=== PATIENT | male | born 1965 | race Caucasian/White ===

== ENCOUNTER 2023-01-24 17:36 | Outpatient (CLI) | payer MEDICAID, OTHER ==
[2023-01-24 18:17] LABS: BASOPHILS % (AUTO) 1.4 %; EOSINOPHILS % (AUTO) 2.2 %; HCT - HEMATOCRIT 29.9 % (42.0-52.0); HGB - HEMOGLOBIN 9.4 g/dL (14.0-18.0); LYMPHOCYTES % (AUTO) 44.1 %; MEAN CORPUSCULAR HEMOGLOBIN 28.5 pg (27.0-31.0); MEAN CORPUSCULAR HGB CONC 31.4 g/dL (32.0-36.0); MEAN CORPUSCULAR VOLUME 90.6 fL (80.0-94.0); MEAN PLATELET VOLUME 9.3 fL (7.4-11.4); MONOCYTES % (AUTO) 17.8 %; NEUTROPHILS % (AUTO) 34.2 %; PLT - PLATELET COUNT 238 10^3/uL (130-450); RED CELL DISTRIBUTION WIDTH 15.9 % (12.0-15.0); WHITE BLOOD COUNT 6.3 x10^3/uL (4.8-10.8)
[2023-01-24 18:19] LABS: ALBUMIN 2.7 g/dL (3.2-5.5)
[2023-01-24 18:23] LABS: ABNORMAL LYMPHS % (MANUAL) 0 %
[2023-01-24 18:28] LABS: ALBUMIN/GLOBULIN RATIO 0.4 (1.0-2.2); BILIRUBIN,TOTAL 0.6 mg/dL (0.2-1.0); CALCIUM 8.9 mg/dL (8.5-10.3); CREATININE 1.1 mg/dL (0.6-1.3); POTASSIUM 3.7 mmol/L (3.5-4.5); TOTAL PROTEIN 9.8 g/dL (6.4-8.9)
[2023-01-24 18:53] LABS: BAND NEUTROPHILS % (MANUAL) 8 %; DIFFERENTIAL COMMENT MANUAL DIFFERENTIAL; EOSINOPHILS # (MANUAL) 0.3 10^3/uL (0-0.7); LYMPHOCYTES % (MANUAL) 47 %; MONOCYTES # (MANUAL) 1.1 10^3/uL (0.0-1.0); PLATELET ESTIMATE, MANUAL NORMAL (130-450,000) (NORMAL); PLATELET MORPHOLOGY NORMAL APPEARANCE (NORMAL); RBC MORPHOLOGY (MULTIPLE) NORMAL APPEARANCE (NORMAL)
--- NOTE | 2023-01-24 19:41 | XRAY Report ---
PROCEDURE: Chest 2 View X-Ray INDICATIONS: DYSPNEA ON EXERTION TECHNIQUE: 2 views of the chest were acquired. COMPARISON: None. FINDINGS: Surgical changes and devices: None. Lungs and pleura: No pleural effusions or pneumothorax. Lungs are clear. Mediastinum: Mediastinal contours appear normal. Heart size is normal. Bones and chest wall: No suspicious bony lesions. Overlying soft tissues appear unremarkable. IMPRESSION: Unremarkable two-view chest x-ray Reviewed by: Jin Griffiths MD on 01/24/2023 6:40 PM AKCYNTHIA Approved by: Jin Griffiths MD on 01/24/2023 6:40 PM AKDT Station ID: [id number]
[2023-01-24 20:38] LABS: THYROID STIMULATING HORMONE 2.34 uIU/mL (0.34-5.60)
[2023-01-24 21:35] LABS: ESTIMATED AVERAGE GLUCOSE 100 mg/dL (70-100); HEMOGLOBIN A1c% 5.1 % (4.27-6.07)
== END 2023-01-24 17:37 | disposition home or self-care (01) ==
LOC: DI 17:36
PROVIDERS: ATTEND Registered Nurse
DX: R63.4 Abnormal weight loss (principal); R53.83 Other fatigue; R06.09 Other forms of dyspnea
CPT/HCPCS: 36415; 80053; 83036; 84443; 85025

== ENCOUNTER 2023-01-26 08:52 | Observation (INO) | payer MEDICAID, OTHER ==
--- OUTSIDE RECORDS SUMMARY | 2023-01-26 09:16 | EXTERNAL MEDICAL SUMMARY RPT | Continuity of Care Document ---
Author Name Unknown Address [address] [place] [address] Phone Organization [facility] Address [address] [place] [address] Phone Care Team Providers Care Document Review Specialist Name Role Phone Unavailable Unavailable Unavailable Bonita Dubois, Flavio Unavailable Unavailabl Eddie Roth Pa-C Unavailable Unavailable Stephanie Mercedes Lpn Unavailable Unavailable Medications date description facility 2023-01-22 00:00 naproxen sodium All 2023-01-26 00:00 naproxen sodium All 2023-01-26 00:00 naproxen sodium All 2023-01-26 00:00 naproxen sodium All 2023-01-22 00:00 naproxen sodium All 2023-01-26 00:00 naproxen sodium All 2023-01-26 00:00 naproxen sodium All 2023-01-26 00:00 naproxen sodium All 2023-01-22 00:00 naproxen sodium All 2023-01-26 00:00 naproxen sodium All 2023-01-26 00:00 naproxen sodium All 2023-01-26 00:00 naproxen sodium All 2023-01-22 00:00 naproxen sodium All 2023-01-26 00:00 naproxen sodium All 2023-01-26 00:00 naproxen sodium All 2023-01-26 00:00 naproxen sodium All Problems date description facility 2023-01-21 00:00 Dyspnea on exertion All 2023-01-21 00:00 Dyspnea on exertion All 2023-01-21 00:00 Dyspnea on exertion All 2023-01-21 00:00 Other malaise and fatigue All 2023-01-21 00:00 Other malaise and fatigue All 2023-01-21 00:00 Other malaise and fatigue All 2023-01-21 00:00 Loss of weight All 2023-01-21 00:00 Loss of weight All 2023-01-21 00:00 Loss of weight All 2023-01-21 00:00 Other dyspnea and respiratory a bnormality All 2023-01-21 00:00 Other dyspnea and respiratory a bnormality All 2023-01-21 00:00 Other dyspnea and respiratory a bnormality All 2023-01-21 00:00 Fatigue All 2023-01-21 00:00 Fatigue All 2023-01-21 00:00 Fatigue All 2023-01-21 00:00 Other forms of dyspnea All 2023-01-21 00:00 Other forms of dyspnea All 2023-01-21 00:00 Other forms of dyspnea All 2023-01-21 00:00 Other fatigue All 2023-01-21 00:00 Other fatigue All 2023-01-21 00:00 Other fatigue All 2023-01-21 00:00 Abnormal weight loss All 2023-01-21 00:00 Abnormal weight loss All 2023-01-21 00:00 Abnormal weight loss All Procedures date description facility 2023-01-21 00:00 Visit Code Hold All 2023-01-21 00:00 Visit Code Hold All 2023-01-21 00:00 Visit Code Hold All Results/Labs test date facility value unit notes Social History date description facility 2023-01-22 00:00 Unknown if ever smoked All 2023-01-26 00:00 Unknown if ever smoked All 2023-01-26 00:00 Unknown if ever smoked All 2023-01-26 00:00 Unknown if ever smoked All Vital Signs date measurement value units 2023-01-21 00:00 BMI 23.09 kg/m2 2023-01-21 00:00 BP_diastolic 74 mmHg 2023-01-21 00:00 BP_systolic 146 mmHg 2023-01-21 00:00 heart_rate 106 /min 2023-01-21 00:00 height_metric 175.26 cm 2023-01-21 00:00 height_standard 69 in 2023-01-21 00:00 respiration_rate 18 /min 2023-01-21 00:00 temperature_metric 36.67 C 2023-01-21 00:00 temperature_standard 98 F 2023-01-21 00:00 weight_metric 70.67 kg 2023-01-21 00:00 weight_standard 155.8 lb
[2023-01-26 09:36] LABS: BASOPHILS % (AUTO) 1.3 %; EOSINOPHILS % (AUTO) 2.5 %; HCT - HEMATOCRIT 31.4 % (42.0-52.0); HGB - HEMOGLOBIN 9.8 g/dL (14.0-18.0); MEAN CORPUSCULAR HEMOGLOBIN 28.7 pg (27.0-31.0); MEAN CORPUSCULAR HGB CONC 31.2 g/dL (32.0-36.0); MEAN CORPUSCULAR VOLUME 91.8 fL (80.0-94.0); MEAN PLATELET VOLUME 9.4 fL (7.4-11.4); MONOCYTES % (AUTO) 19.4 %; NEUTROPHILS % (AUTO) 28.6 %; PLT - PLATELET COUNT 233 10^3/uL (130-450); RED BLOOD COUNT 3.42 10^6/uL (4.70-6.10); RED CELL DISTRIBUTION WIDTH 16.2 % (12.0-15.0); WHITE BLOOD COUNT 5.3 x10^3/uL (4.8-10.8)
[2023-01-26 09:38] LABS: ABNORMAL LYMPHS % (MANUAL) 0 %
[2023-01-26 09:55] LABS: ALBUMIN 2.7 g/dL (3.2-5.5)
[2023-01-26 09:57] LABS: ALBUMIN/GLOBULIN RATIO 0.4 (1.0-2.2); BILIRUBIN,TOTAL 0.7 mg/dL (0.2-1.0); CREATININE 0.8 mg/dL (0.6-1.3)
[2023-01-26 10:03] LABS: BAND NEUTROPHILS % (MANUAL) 1 %; BASOPHILS # (MANUAL) 0.4 10^3/uL (0-0.1); BASOPHILS % (MANUAL) 7 %; EOSINOPHILS # (MANUAL) 0.3 10^3/uL (0-0.7); LYMPHOCYTES # (MANUAL) 2.4 10^3/uL (1.5-3.5); LYMPHOCYTES % (MANUAL) 45 %; MONOCYTES # (MANUAL) 0.8 10^3/uL (0.0-1.0); NEUTROPHILS # (MANUAL) 1.4 10^3/uL (1.5-6.6); NUCLEATED RBC (MANUAL) 1 %
[2023-01-26 10:04] LABS: DIFFERENTIAL COMMENT MANUAL DIFFERENTIAL; PLATELET ESTIMATE, MANUAL NORMAL (130-450,000) (NORMAL); PLATELET MORPHOLOGY NORMAL APPEARANCE (NORMAL); RBC MORPHOLOGY (MULTIPLE) 1+ ANISOCYTOSIS (NORMAL)
[2023-01-26] MEDS ORDERED: SODIUM CHLORIDE 0.9% 500 ML IV STA (10:09)
--- NOTE | 2023-01-26 11:54 | CT Report ---
PROCEDURE: CT angiogram chest with contrast INDICATIONS: SOA/weight loss/anemia CONTRAST: 100ml omni 300 TECHNIQUE: After the administration of intravenous contrast, 2 mm axial images were acquired from the pulmonary apices to the posterior costophrenic angles during the arterial phase. In addition, 1 mm lung kernel and 5 mm soft tissue kernel reconstructions were performed. Coronal oblique maximum intensity project ion (MIP) reformats, 8 mm axial MIP, and 5 mm coronal and sagittal MPR reformats were then performed through the thorax. For radiation dose reduction, the following was used: automated exposure control, adjustment of mA and/or kV according to patient size. COMPARISON: None FINDINGS: Image quality: Excellent. Large vessels: No filling defects within the opacified pulmonary arteries, accounting for motion and contrast timing. No evidence of acute aortic syndrome or aortic aneurysm. Lungs and pleura: Moderate, emphysema present throughout both lungs. There is right upper lobe airway mucous plugging noted without consolidation. Mild dependent atelectasis in the lung bases noted. Ple ural spaces are clear without pleural effusion. Mediastinum: Heart size is normal. No pericardial effusion. No large vessel abnormality. No mediastin al adenopathy by size criteria. Chest wall and lower neck: Thyroid is unremarkable. No axillary or supraclavicular adenopathy by size . Bones: No aggressive osseous abnormality. Upper Abdomen: Splenomegaly, 12 cm IMPRESSION: No evidence of pulmonary embolism, aortic dissection or aneurysm. Moderate pulmonary emphysema. Right upper lobe small airway mucous plugging without the consolidation Reviewed by: Jin Griffiths MD on 01/26/2023 10:53 AM SOPHY Approved by: Jin Griffiths MD on 01/26/2023 10:53 AM AKCYNTHIA Station ID: [id number]
--- NOTE | 2023-01-26 12:06 | CT Report ---
PROCEDURE: CT abdomen and pelvis with contrast INDICATIONS: weight loss/anemia TECHNIQUE: Helical axial CT of the abdomen and pelvis was obtained after intravenous contrast adminis tration and reformatted in multiple planes. For radiation dose reduction, the following was used: au tomated exposure control, adjustment of mA and/or kV according to patient size. COMPARISON: None FINDINGS: Lower thorax: The lung bases are clear. Heart size normal. No hiatal hernia. Liver: Normal in size and attenuation. No contour deformity present.Low-density 1 cm lesion in the r ight hepatic lobe with dot of central enhancement. Biliary system: No calcified cholelithiasis or pericholecystic inflammation. No evidence of bile du ct dilatation. Pancreas: Unremarkable without mass or inflammation evident. Spleen: Splenomegaly, 14.8 cm. Adrenals: Low-density 1.3 cm nodule in the right adrenal gland. Left adrenal gland unremarkable. Reproductive system: Unremarkable as visualized. Urinary system: Normal renal size and attenuation. No renal calculi, hydronephrosis, or solid mass p resent. Urinary bladder unremarkable. 9 mm hypodense lesion in the left renal cortex, possible cyst Gastrointestinal system: The bowel appears unremarkable with no evidence of bowel obstruction or inf lammation. The stomach appears unremarkable. Appendix: No findings to suggest acute appendicitis. Peritoneal spaces: No mesenteric or retroperitoneal adenopathy. No free air. No free fluid. Vasculature: Atherosclerotic vascular calcification of the aorta noted without aneurysm Abdominal wall: Abdominal wall is intact without evidence of ventral or inguinal hernias. Musculoskeletal: Normal bone mineralization. No acute fractures. Abdominal wall intact without javan dence of ventral or inguinal hernias. Old healed right-sided rib fracture IMPRESSION: Splenomegaly without retroperitoneal adenopathy. Low-density 1.3 cm right adrenal nodule, possible adenoma could be confirmed with MRI. Low-density 1 cm lesion in the liver with central enhancement could also be further evaluated with MR I Reviewed by: Jin Griffiths MD on 01/26/2023 11:04 AM SOPHY Approved by: Jin Griffiths MD on 01/26/2023 11:04 AM SOPHY Station ID: [id number]
--- NOTE | 2023-01-26 12:30 | ED Physician Documentation ---
History of Present Illness - Stated complaint Stated Complaint: SOA/ABNORMAL LABS - Chief complaint Chief Complaint: Resp - History obtained from History obtained from: Patient - Additonal information Additional information: Patient is a 57-year-old male with no known prior medical history presenting for evaluation of abnormal labs. For the past several months he has been feeling increasingly short of air particularly with exertion and also feeling weak. He has had an unintentional weight loss of 30 pounds over the past 1 year. His brother is visiting him and encouraged him to go to the walk-in clinic a few days ago for evaluation. Labs were obtained which demonstrated a hemoglobin of 9.4 and a sodium of 125. Patient does report often feeling thirsty. He does not take any medications regularly. He denies chest pain, fever, cough, vomiting, black or bloody stools. He was called by the walk-in clinic today and directed to the emergency department for further evaluation. Review of Systems Constitutional: denies: Fever Cardiac: denies: Chest pain / pressure Respiratory: reports: Dyspnea GI: denies: Abdominal Pain Neurologic: reports: Generalized weakness Endocrine: reports: Weight loss PD PAST MEDICAL HISTORY - Past Medical History Past Medical History: No Cardiovascular: None Respiratory: None Neuro: None Endocrine/Autoimmune: None GI: None : None HEENT: None Psych: None Musculoskeletal: None Derm: None - Past Surgical History Past Surgical History: No - Present Medications Home Medications: Ambulatory Orders Medication Instructions Recorded Confirmed No Known Home Medications 01/26/23 01/26/23 - Allergies Allergies/Adverse Reactions: Allergies Allergy/AdvReac Type Severity Reaction Status Date / Time No Known Drug Allergies Allergy Verified 01/26/23 09:01 - Social History Does the pt smoke?: Yes Smoking Status: Current every day smoker Does the pt drink ETOH?: Yes ETOH Use: Beer Does the pt have substance abuse?: No - Immunizations Immunizations are current?: No - POLST Patient has POLST: No PD ED PE NORMAL - General General: Alert and oriented X 3, No acute distress, Well developed/nourished - HEENT HEENT: Atraumatic - Neck Neck: Supple, no meningeal sign - Cardiac Cardiac: RRR, No murmur - Respiratory Respiratory: No respiratory distress, Clear bilaterally - Abdomen Abdomen: Soft, Non tender, Non distended - Derm Derm: Warm and dry - Extremities Extremities: No calf tenderness / cord - Neuro Neuro: Alert and oriented X 3, No motor deficit, No sensory deficit, Normal speech Results - Vitals Vitals: Vital Signs - 24 hr 01/26/23 01/26/23 01/26/23 08:58 10:01 12:00 Temperature 36.4 C L Heart Rate 115 H 100 89 Respiratory 26 H 15 18 Rate Blood Pressure 99/65 132/80 H 120/79 O2 Saturation 100 100 100 Oxygen O2 Source Room air - EKG (time done) 0949 EKG releavant findings:: EKG personally interpreted by author of this note. Relevant findings are: Rate 92, normal sinus rhythm, no STEMI, no ST depressions Rate: Rate (enter#) (92) Rhythm: NSR Ischemia: No: ST elevation c/w ischemia Compare to prior EKG: Old EKG unavailable - Labs Labs: Laboratory Tests 01/26/23 01/26/23 01/26/23 09:30 09:30 13:18 WBC 5.3 RBC 3.42 L Hgb 9.8 L Hct 31.4 L MCV 91.8 MCH 28.7 MCHC 31.2 L RDW 16.2 H Plt Count 233 MPV 9.4 Neut # (Auto) Not Reportable Lymph # (Auto) Not Reportable [place] # (Auto) Not Reportable Eos # (Auto) Not Reportable Baso # (Auto) Not Reportable Absolute Nucleated RBC Not Reportable Total Counted 100 Band Neuts % (Manual) 1 Abnorm Lymph % (Manual) 0 Nucleated RBC % Not Reportable Neutrophils # (Manual) 1.4 L Lymphocytes # (Manual) 2.4 Monocytes # (Manual) 0.8 Eosinophils # (Manual) 0.3 Basophils # (Manual) 0.4 H Nucleated RBCs 1 Differential Comment MANUAL DIFFERENTIAL Platelet Estimate NORMAL (130-450,000) Platelet Morphology NORMAL APPEARANCE RBC Morph Micro Appear 1+ ANISOCYTOSIS Sodium 126 L Potassium 4.0 Chloride 101 Carbon Dioxide 22 Anion Gap 3.0 L BUN 19 Creatinine 0.8 Estimated GFR (MDRD) 99 Glucose 34 L* POC Whole Bld Glucose 99 Calcium 9.0 Total Bilirubin 0.7 AST 70 H ALT 46 Alkaline Phosphatase 62 Total Protein 10.0 H Albumin 2.7 L Globulin 7.3 H Albumin/Globulin Ratio 0.4 L PD Medical Decision Making - ED course Complexity details: reviewed results, re-evaluated patient, d/w patient, d/w family ED course: Patient is a 57-year-old male with no significant prior medical history but has not seen a doctor in decades presenting for evaluation of abnormal labs. Recent symptoms include weakness, dyspnea, unintentional weight loss. Patient is afebrile, does not appear septic. CBC, chemistries were obtained and reviewed. Patient does have anemia with a hemoglobin of 9.8. This is unchanged from a few days ago. Denies hematochezia or melena. Sodium of 126 which is similar to a few days ago of 125.Patient also noted to be hypoglycemic with glucose of 34. He does not take insulin. I did evaluate the patient and he appears to be asymptomatic and is conversant. Patient was given juice as well as crackers. Chest x-ray was reviewed from 2 days ago and I see no effusion or mass. Given his symptoms I obtained a CT chest, abdomen pelvis with concerns for malignancy. There is a nodule on the adrenal gland as well as the liver. I did review these results with the patient and his brother and they are aware that he would need MRIs to evaluate these areas. It given lab abnormalities and lack of PCP I do think patient would benefit from observation with continued treatment of his hyponatremia and evaluation of abnormal labs. Discussed with admitting hospitalist who agrees with plan for observation. 1339 - Discussed with admitting hospitalist, Dr. Mera who will admit the patient for further observation. She may consider doing an MRI to evaluate the adrenal mass. Departure - Departure Disposition: ED Place in Observation Clinical Impression: Hyponatremia, Hypoglycemia, Anemia, Adrenal nodule, Liver nodule Condition: Good Discharge Date/Time: 01/26/23 15:42
[2023-01-26] MEDS ORDERED: SODIUM CHLORIDE FLUSH 0.9% 10 ML SYRINGE IVP PRN (15:01)
[2023-01-26] MEDS ORDERED: ONDANSETRON 4 MG/2 ML VIAL IVP PRN (15:01)
[2023-01-26] MEDS ORDERED: ACETAMINOPHEN 325 MG TABLET PO PRN (15:01)
--- NOTE | 2023-01-26 15:09 | HISTORY & PHYSICAL EXAMINATION ---
Chief Complaint - Chief Complaint Chief Complaint: Told to come to ER by provider, because of abnormal lab tests History of Present Illness - Admitted From Admitted From:: ED - History Obtained From History obtained from: ED provider, patient, at bedside - History of Present Illness HPI Comment/Other: This is a 57-year-old male with a negative past medical history. He has had swelling of his joints of his fingers with deformities for many years, has never had it evaluated (but it appears to be rheumatoid arthritis). He works as a furnace worker, has amended the way he holds his equipment because of these finger deformities. He uses occasional Aleve. The patient also smoked 1-1/2 to 2 packs a day, has decreased now down to two thirds of a pack, is trying to quit. The patient has felt weak and dizzy for the past 4-5 months, feels like he has a "buzz" when he gets up every morning. 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 He reports fatigue and a weight loss of 30 pounds that was unintentional, over the past 1 year. His brother visited him from out of state and encouraged the patient to go to a walk-in clinic for evaluation where labs were drawn 2 days ago. Sodium was 125, hemoglobin 9.4, CXR showed COPD. Due to abnormal labs, today he was told to come to the ER. He denied any other complaints such as melena or hematochezia when evaluated. He does admit to drinking 8 bottles of bottled water daily. Patient does describe shortness of breath with activity over the past 4 months. He denies PND orthopnea. He denies any syncope, chest pain, palpitations, leg edema. Labs were repeated in our ER, and he has a sodium of 126, hemoglobin 9.8 and glucose 34. The glucose lab was repeated by fingerstick and came back at 99 but this was about 2 hours later. The patient underwent CT of chest and abdomen/pelvis, it was negative for PE. Important findings were that there was a mass in his liver and a nodule on the adrenal gland. ED provider spoke to me about this patient. He will be placed in Observation because of the hypoglycemia, to monitor and see if this is recurrent. We will also treat him for hyponatremia. I asked the patient about his CODE BLUE wishes and without hesitation he stated he wants to be a DNR/DNI. History - Past Medical History Cardiovascular: reports: None Respiratory: reports: Shortness of breath Neuro: reports: None Endocrine/Autoimmune: reports: Other (Hasn odules on all the joints of all his fingers, and deformities, which are consistent with RA) GI: reports: None : reports: None HEENT: reports: None Psych: reports: None Musculoskeletal: reports: None Derm: reports: None MRSA Hx?: No - Family & Social History Living arrangement: At home Living Situation: With spouse/s.o. Social History Notes: He was a smoker of 1/2 to 2 packs a day, has decreased down to 2/3 pack a day. He drinks no alcohol. He rarely uses marijuana. He denies any other drug use. 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 - Substance History Use: Uses substance without health or social issues: Tobacco - POLST Patient has POLST: No Meds/Allgy - Home Medications Home Medications: Ambulatory Orders Medication Instructions Recorded Confirmed No Known Home Medications 01/26/23 01/26/23 - Allergies Allergies/Adverse Reactions: Allergies Allergy/AdvReac Type Severity Reaction Status Date / Time No Known Drug Allergies Allergy Verified 01/26/23 09:01 Review of Systems - Constitutional Constitutional: reports: Fatigue, Other (Dizzy/foggy when he awakens) - Respiratory Respiratory: reports: SOB with exertion - Musculoskeletal Musculoskeletal: reports: Joint pain (pain and swelling and deformities, he takes aleve, has never had these diagnosed.) - All Other Systems All Other Systems: reports: Reviewed and negative Exam - Vital Signs Reviewed Vital Signs: Yes Vital Signs: Vital Signs x48h Temp Pulse Resp BP Pulse Ox 01/26/23 12:00 89 18 120/79 100 01/26/23 10:01 100 15 132/80 H 100 01/26/23 08:58 36.4 C L 115 H 26 H 99/65 100 - Physical Exam General Appearance: positive: No acute distress, Alert Eyes Bilateral: positive: Normal inspection, EOMI ENT: positive: ENT inspection nml, No signs of dehydration Neck: positive: Nml inspection, No JVD Respiratory: positive: No respiratory distress, Breath sounds nml Cardiovascular: positive: Regular rate & rhythm, No murmur Abdomen: positive: Non-tender, Nml bowel sounds, No distention Skin: positive: Warm, Dry Extremities: positive: Joint swelling (every PIP, DIP and knuckles have large nodules, are not red or warm, and the fingers have defornities, but full ROM) Neurologic/Psychiatric: positive: Oriented x3, Motor nml Conclusion/Plan - Problem List (1) Hyponatremia Conclusion/Plan: Patient admits to drinking a bottles of bottled water daily. His at bedside confirms this and says she has told him repeatedly that he is "waterlogged". The patient recently started adding Gatorade to his hydration. Patient does not have hyperglycemia, is not on a diuretic to explain the low sodium reading Plan: We will start IV normal saline Follow sodium every 12 hours with the plan to correct his serum sodium slowly, 6-8M EQ over the next 12 to 24 hours I discussed with the patient that he is drinking too much water, this is adding to the dilutional effect. I recommended that he start taking in more electrolyte-containing liquids such as Gatorade, broths. He understood and said he will. We will check a urine sodium to rule out SIADH (2) Hypoglycemia Conclusion/Plan: Patient reports that he wakes up "buzzed" or in a fog every morning until he eats and drinks. This may be his sensation of hypoglycemia. There is no Hx of taking meds like Ozempic or other meds that could cause such a low glu. The concern is that the mass in the adrenal gland might be an insulinoma. Plan: We will order ac & hs fingerstick glu checks and hypoglycemia protocol, to document where his sugars run Will order imaging of the abdomen using MRI to get better definition of the mass in the liver and the mass on the adrenal He will need referral to oncology or endocrinology if we suspect he has insulinoma. I told the patient and this plan and they understood. (3) Anemia Conclusion/Plan: Patient denies melena or hematochezia. He denies any history of ulcer disease, but he does use Aleve routinely for his arthritic pain. This anemia could be adding to his SOB Plan: We will check his B12, folate levels and iron stores and replace if low Check stool guaiac Follow hemoglobin daily, transfuse if below 7 (4) Adrenal nodule Conclusion/Plan: Plan: Abdomen MRI (5) Liver mass Conclusion/Plan: Plan: Abdomen MRI (6) Weight loss Conclusion/Plan: This is concerning and that we may be uncovering an occult malignancy. Plan: We will ask for nutrition consult (7) COPD without exacerbation Conclusion/Plan: I described to the patient, and at bedside, that his chest x-ray was read as having COPD (plus mucus plugging was seen). I discussed that his history of cigarette smoking has likely led to this finding. His COPD is likely adding to his SOB complaint. He is not currently wheezing and is not in a COPD exacerbation. Plan: We will start the patient on Spiriva and/or Advair inhalers and he should be discharged on hand inhalers I promoted further smoking cessation (8) Tobacco use Conclusion/Plan: Plan: Nicotine patch as needed (9) Rheumatoid nodule of hand Conclusion/Plan: He has not seen a doctor in over 10 years. These joints have never been evaluated and he has never had a diagnosis established for these. His hands have the changes of a patient with rheumatoid arthritis. He may have other systemic findings if he has RA Plan: Check rheumatoid factor - Lab Results Fish Bones: 01/26/23 09:30 01/26/23 09:30 - Diagnostic Imaging Results Diagnostic Imaging Results: positive: Final report reviewed
[2023-01-26] MEDS: SODIUM CHLORIDE 0.9% 1,000 ML IV SCH (16:03)
[2023-01-26] MEDS ORDERED: iohexoL-300 100 ML VIAL IVP ONE (16:10)
[2023-01-26] MEDS: SODIUM CHLORIDE FLUSH 0.9% 10 ML SYRINGE IVP SCH (16:56)
--- NOTE | 2023-01-26 22:27 | PROVIDER PROGRESS NOTE ---
[employer] Manager Note - [employer] Manager Note [employer] Manager Note: Patient started on nicoderm patch due to hx of tobacoo dependance at 14 mg/day q daildy with first dose now
[2023-01-26] MEDS: NICOTINE 14 MG PATCH TOP SCH (22:32)
[2023-01-27] MEDS: SODIUM CHLORIDE FLUSH 0.9% 10 ML SYRINGE IVP SCH ×3 (00:04→18:01)
[2023-01-27 05:14] LABS: HCT - HEMATOCRIT 27.8 % (42.0-52.0); HGB - HEMOGLOBIN 8.7 g/dL (14.0-18.0); MEAN CORPUSCULAR HEMOGLOBIN 28.7 pg (27.0-31.0); MEAN CORPUSCULAR HGB CONC 31.3 g/dL (32.0-36.0); MEAN CORPUSCULAR VOLUME 91.7 fL (80.0-94.0); MEAN PLATELET VOLUME 9.5 fL (7.4-11.4); RED BLOOD COUNT 3.03 10^6/uL (4.70-6.10); WHITE BLOOD COUNT 4.6 x10^3/uL (4.8-10.8)
[2023-01-27 05:30] LABS: ALBUMIN 2.4 g/dL (3.2-5.5); MAGNESIUM 1.7 mg/dL (1.7-2.3)
[2023-01-27 05:38] LABS: ALBUMIN/GLOBULIN RATIO 0.4 (1.0-2.2); BILIRUBIN,TOTAL 0.5 mg/dL (0.2-1.0); CALCIUM 8.5 mg/dL (8.5-10.3); CREATININE 0.8 mg/dL (0.6-1.3); POTASSIUM 3.5 mmol/L (3.5-4.5); TOTAL PROTEIN 8.8 g/dL (6.4-8.9)
[2023-01-27] MEDS ORDERED: GLUCAGON 1 MG/ML VIAL SUBQ ONE ×3 (06:20)
[2023-01-27] MEDS ORDERED: DEXTROSE 40% GEL 37.5 GM TUBE PO ONE ×2 (06:20)
[2023-01-27] MEDS ORDERED: DEXTROSE 50% ABBOJECT 25 GM/50 ML SYRINGE IVP ONE ×3 (06:20)
[2023-01-27] MEDS ORDERED: DEXTROSE 5% 1,000 ML IV SCH ×6 (07:00)
--- NOTE | 2023-01-27 07:18 | PROVIDER PROGRESS NOTE ---
Subjective - Prog Note Date Prog Note Date: 01/27/23 - Subjective Subjective: He feels a bit off this morning and his blood sugar was low then. Feels well today. Denies any blood in his stool. Has been eating a little bit more today. Current Medications - Current Medications Current Medications: Active Medications Acetaminophen (Acetaminophen 325 Mg Tablet) 650 mg PO Q4HR PRN PRN Reason: Pain 1 to 4, or Fever Ascorbic Acid (Ascorbic Acid 500 Mg Tablet) 500 mg PO DAILY [facility] Last Admin: 01/27/23 10:53 Dose: 500 mg Sodium Chloride (Normal Saline 0.9%) 1,000 mls @ 50 mls/hr IV .Q20H [facility] Last Admin: 01/27/23 10:53 Dose: 50 mls/hr Multivitamins/Minerals (Multivitamin W/Minerals Tablet) 1 tab PO DAILYWM [facility] Last Admin: 01/27/23 10:53 Dose: 1 tab Nicotine (Nicotine 14 Mg Patch) 1 patch TOP DAILY [facility] Last Admin: 01/27/23 08:34 Dose: 1 patch Ondansetron HCl (Ondansetron 4 Mg/2 Ml Vial) 4 mg IVP Q6HR PRN PRN Reason: Nausea / Vomiting Sodium Chloride (Sodium Chloride Flush 0.9% 10 Ml Syringe) 10 ml IVP PRN PRN PRN Reason: NEEDED PER PROVIDER ORDERS Sodium Chloride (Sodium Chloride Flush 0.9% 10 Ml Syringe) 10 ml IVP 0100,0900,1700 [facility] Last Admin: 01/27/23 08:34 Dose: Not Given Naproxen Sodium [Aleve] 220 mg PO BID PRN 01/27/23 Objective - Vital Signs/Intake & Output Reviewed Vital Signs: Yes Vital Signs: Vital Signs x48h Temp Pulse Resp BP Pulse Ox 01/27/23 04:47 36.7 C 101 H 18 128/64 99 01/26/23 23:53 37.2 C 92 18 118/55 L 97 Intake & Output: Intake & Output 01/24/23 01/25/23 01/26/23 01/27/23 23:59 23:59 23:59 23:59 Intake Total 1380 Balance 1380 - Objective General Appearance: positive: No acute distress, Alert Eyes Bilateral: positive: Normal inspection, Conjunctivae nml ENT: positive: ENT inspection nml, No signs of dehydration Neck: positive: Nml inspection Respiratory: positive: No respiratory distress. negative: Wheezes, Rales Cardiovascular: positive: Regular rate & rhythm, No murmur. negative: Tachycardia Abdomen: positive: Non-tender, No distention. negative: Tenderness, Guarding, Rebound Skin: positive: Warm, Dry Extremities: positive: No pedal edema Neurologic/Psychiatric: positive: Oriented x3, Motor nml. negative: Disoriented to person, Disoriented to place, Disoriented to time - Lab Results Fish Bones: 01/27/23 04:45 01/27/23 14:02 Other Labs: Lab Results x24hrs 01/27/23 01/27/23 01/27/23 Range/Units 05:58 04:45 04:45 WBC 4.6 L (4.8-10.8) x10^3/uL RBC 3.03 L (4.70-6.10) 10^6/uL Hgb 8.7 L (14.0-18.0) g/dL Hct 27.8 L (42.0-52.0) % MCV 91.7 (80.0-94.0) fL MCH 28.7 (27.0-31.0) pg MCHC 31.3 L (32.0-36.0) g/dL RDW 16.0 H (12.0-15.0) % Plt Count 196 (130-450) 10^3/uL MPV 9.5 (7.4-11.4) fL Neut # (Auto) Lymph # (Auto) Granite # (Auto) Eos # (Auto) Baso # (Auto) Absolute Nucleated RBC Total Counted Band Neuts % (Manual) (0 - 10) % Abnorm Lymph % (Manual) % Nucleated RBC % Neutrophils # (Manual) (1.5-6.6) 10^3/uL Lymphocytes # (Manual) (1.5-3.5) 10^3/uL Monocytes # (Manual) (0.0-1.0) 10^3/uL Eosinophils # (Manual) (0-0.7) 10^3/uL Basophils # (Manual) (0-0.1) 10^3/uL Nucleated RBCs % Differential Comment Platelet Estimate (NORMAL) Platelet Morphology (NORMAL) RBC Morph Micro Appear (NORMAL) Sodium 131 L (135-145) mmol/L Potassium 3.5 (3.5-4.5) mmol/L Chloride 107 (101-111) mmol/L Carbon Dioxide 22 (21-32) mmol/L Anion Gap 2.0 L (6-13) BUN 15 (6-20) mg/dL Creatinine 0.8 (0.6-1.3) mg/dL Estimated GFR (MDRD) 99 (>89) Glucose 44 L* (74-104) mg/dL POC Whole Bld Glucose 108 H (70 - 100) mg/dL Calcium 8.5 (8.5-10.3) mg/dL Magnesium 1.7 (1.7-2.3) mg/dL Iron 55 (50-212) ug/dL TIBC 309 (250-450) ug/dL % Saturation 18 L (20-50) % Transferrin 221 (203-362) mg/dL Total Bilirubin 0.5 (0.2-1.0) mg/dL AST 58 H (10-42) IU/L ALT 39 (10-60) IU/L Alkaline Phosphatase 53 (42-121) IU/L Total Protein 8.8 (6.4-8.9) g/dL Albumin 2.4 L (3.2-5.5) g/dL Globulin 6.4 H (2.1-4.2) g/dL Albumin/Globulin Ratio 0.4 L (1.0-2.2) 01/26/23 01/26/23 01/26/23 Range/Units 23:02 20:43 16:46 WBC (4.8-10.8) x10^3/uL RBC (4.70-6.10) 10^6/uL Hgb (14.0-18.0) g/dL Hct (42.0-52.0) % MCV (80.0-94.0) fL MCH (27.0-31.0) pg MCHC (32.0-36.0) g/dL RDW (12.0-15.0) % Plt Count (130-450) 10^3/uL MPV (7.4-11.4) fL Neut # (Auto) Lymph # (Auto) Granite # (Auto) Eos # (Auto) Baso # (Auto) Absolute Nucleated RBC Total Counted Band Neuts % (Manual) (0 - 10) % Abnorm Lymph % (Manual) % Nucleated RBC % Neutrophils # (Manual) (1.5-6.6) 10^3/uL Lymphocytes # (Manual) (1.5-3.5) 10^3/uL Monocytes # (Manual) (0.0-1.0) 10^3/uL Eosinophils # (Manual) (0-0.7) 10^3/uL Basophils # (Manual) (0-0.1) 10^3/uL Nucleated RBCs % Differential Comment Platelet Estimate (NORMAL) Platelet Morphology (NORMAL) RBC Morph Micro Appear (NORMAL) Sodium 133 L (135-145) mmol/L Potassium (3.5-4.5) mmol/L Chloride (101-111) mmol/L Carbon Dioxide (21-32) mmol/L Anion Gap (6-13) BUN (6-20) mg/dL Creatinine (0.6-1.3) mg/dL Estimated GFR (MDRD) (>89) Glucose (74-104) mg/dL POC Whole Bld Glucose 109 H 115 H (70 - 100) mg/dL Calcium (8.5-10.3) mg/dL Magnesium (1.7-2.3) mg/dL Iron (50-212) ug/dL TIBC (250-450) ug/dL % Saturation (20-50) % Transferrin (203-362) mg/dL Total Bilirubin (0.2-1.0) mg/dL AST (10-42) IU/L ALT (10-60) IU/L Alkaline Phosphatase (42-121) IU/L Total Protein (6.4-8.9) g/dL Albumin (3.2-5.5) g/dL Globulin (2.1-4.2) g/dL Albumin/Globulin Ratio (1.0-2.2) 01/26/23 01/26/23 01/26/23 Range/Units 13:18 09:30 09:30 WBC 5.3 (4.8-10.8) x10^3/uL RBC 3.42 L (4.70-6.10) 10^6/uL Hgb 9.8 L (14.0-18.0) g/dL Hct 31.4 L (42.0-52.0) % MCV 91.8 (80.0-94.0) fL MCH 28.7 (27.0-31.0) pg MCHC 31.2 L (32.0-36.0) g/dL RDW 16.2 H (12.0-15.0) % Plt Count 233 (130-450) 10^3/uL MPV 9.4 (7.4-11.4) fL Neut # (Auto) Not Reportable Lymph # (Auto) Not Reportable Granite # (Auto) Not Reportable Eos # (Auto) Not Reportable Baso # (Auto) Not Reportable Absolute Nucleated RBC Not Reportable Total Counted 100 Band Neuts % (Manual) 1 (0 - 10) % Abnorm Lymph % (Manual) 0 % Nucleated RBC % Not Reportable Neutrophils # (Manual) 1.4 L (1.5-6.6) 10^3/uL Lymphocytes # (Manual) 2.4 (1.5-3.5) 10^3/uL Monocytes # (Manual) 0.8 (0.0-1.0) 10^3/uL Eosinophils # (Manual) 0.3 (0-0.7) 10^3/uL Basophils # (Manual) 0.4 H (0-0.1) 10^3/uL Nucleated RBCs 1 % Differential Comment MANUAL DIFFERENTIAL Platelet Estimate NORMAL (130-450,000) (NORMAL) Platelet Morphology NORMAL APPEARANCE (NORMAL) RBC Morph Micro Appear 1+ ANISOCYTOSIS (NORMAL) Sodium 126 L (135-145) mmol/L Potassium 4.0 (3.5-4.5) mmol/L Chloride 101 (101-111) mmol/L Carbon Dioxide 22 (21-32) mmol/L Anion Gap 3.0 L (6-13) BUN 19 (6-20) mg/dL Creatinine 0.8 (0.6-1.3) mg/dL Estimated GFR (MDRD) 99 (>89) Glucose 34 L* (74-104) mg/dL POC Whole Bld Glucose 99 (70 - 100) mg/dL Calcium 9.0 (8.5-10.3) mg/dL Magnesium (1.7-2.3) mg/dL Iron (50-212) ug/dL TIBC (250-450) ug/dL % Saturation (20-50) % Transferrin (203-362) mg/dL Total Bilirubin 0.7 (0.2-1.0) mg/dL AST 70 H (10-42) IU/L ALT 46 (10-60) IU/L Alkaline Phosphatase 62 (42-121) IU/L Total Protein 10.0 H (6.4-8.9) g/dL Albumin 2.7 L (3.2-5.5) g/dL Globulin 7.3 H (2.1-4.2) g/dL Albumin/Globulin Ratio 0.4 L (1.0-2.2) Assessment/Plan - Problem List (1) Hyponatremia Impression: Suspect this is likely hypovolemic hyponatremia. Initial sodium was 126 and this improved to 133 last night before slightly decreasing to 131 this morning. Urine electrolytes are still pending. Plan: Continue gentle IV hydration with normal saline Check BMP again this afternoon (2) Hypoglycemia Conclusion/Plan: Patient reports that he wakes up "buzzed" or in a fog every morning until he ea ts and drinks. Routine labs outpatient basis revealed hypoglycemia. He is not on any medications that would cause hypoglycemia. His blood glucose once again is in the 40s this morning. A1c is 5.1%. TSH is pending.Etiology of this is not clear but given his history concerning for underlying malignancy versus insulinoma versus malnutrition and depleted glycogen stores. Plan: We will discontinue D5 and continue blood glucose checks. I have asked nursing to inform us if his blood glucose is less than 50 and then we will check labs such as insulin, C-peptide, proinsulin before treating hypoglycemia (3) Anemia Conclusion/Plan: Patient denies melena or hematochezia. He denies any history of ulcer disease, but he does use Aleve routinely for his arthritic pain. This anemia could be adding to his SOB. Hemoglobin is little decreased today to 8.7 from 9.8 on admission. Iron studies do not suggest iron deficiency although ferritin is pending. Stool was negative for occult blood. Plan: Follow hemoglobin daily, transfuse if below 7 (4) Adrenal nodule Conclusion/Plan: Likely an adenoma but we will follow-up MRI results. (5) Liver mass Conclusion/Plan: There is a 1 cm lesion in the liver and we are awaiting MRI results to further characterize this. (6) Weight loss Conclusion/Plan: This is concerning and that we may be uncovering an occult malignancy. Plan: Appreciate nutrition input Encourage oral intake He will need outpatient colonoscopy (7) COPD without exacerbation Conclusion/Plan: CT suggest emphysematous changes. He is not hypoxic and likely at his baseline. He will need appropriate inhaler therapy on discharge likely with albuterol as needed and consideration of Spiriva. Patient was counseled on importance of smoking cessation. (8) Tobacco use Conclusion/Plan: Plan: Nicotine patch as needed (9) Rheumatoid nodule of hand Conclusion/Plan: He has not seen a doctor in over 10 years. These joints have never been evaluated and he has never had a diagnosis established for these. His hands have the changes of a patient with rheumatoid arthritis. Plan: Follow up rheumatoid factor
[2023-01-27] MEDS: NICOTINE 14 MG PATCH TOP SCH (08:34)
[2023-01-27 08:59] LABS: ESTIMATED AVERAGE GLUCOSE 100 mg/dL (70-100); HEMOGLOBIN A1c% 5.1 % (4.27-6.07)
[2023-01-27] MEDS: SODIUM CHLORIDE 0.9% 1,000 ML IV SCH (10:53)
[2023-01-27] MEDS: MULTIVITAMIN W/MINERALS TABLET PO SCH (10:53)
[2023-01-27] MEDS: ASCORBIC ACID 500 MG TABLET PO SCH (10:53)
--- NOTE | 2023-01-27 12:29 | PHARMACY PROGRESS NOTE ---
- Best Possible Medication History Admit Date and Time: 01/26/23 1501 Processed by: Pharmacy Medication History completed: Yes Patient Interview: Completed As the person ultimately responsible for medication therapy, providers are able to order a medication from an existing home medication list in [facility] via the "Reconcile Routine" prior to Confirmation of that medication by customer support associate. Such practice is discouraged except when the physician, in their clinical ward gment, deems that a medical need exists for a medication without regard to previous use.
--- NOTE | 2023-01-27 12:56 | MRI Report ---
PROCEDURE: ABDOMEN W/WO INDICATIONS: Liver mass, adrenal nodule. Hypoglycemia CONTRAST: gadavist 7.2ml TECHNIQUE: Coronal ultra fast SE, axial 2D spoiled GE in- and [id number]; axial breath-hold T2 fast SE. Dynam ic axial ultra fast GE during the administration of contrast; post-contrast coronal ultra fast GE or 2D spoiled GE with fat saturation from the hepatic dome to the iliac crests. Optional diffusion weig hted imaging and ADC may be performed. COMPARISON: 01/26/2023 FINDINGS: Image quality: Mild motion artifact. Lower chest: No basal effusions. Lungs are not well evaluated on this study. Solid organs: High T2 signal lesion in the medial portion of segment 6 measuring 1.6 cm. There is mil d contrast accumulation on delayed phase imaging. Another smaller lesion with similar imaging charact eristics is seen adjacent to Morison's pouch (14/46) The liver is otherwise unremarkable. Gallbladder is underdistended. No pathologic dilation of the biliary tree or pancreatic duct. Mild sp lenomegaly measuring 14 to 15 cm. A left adrenal nodule is again seen measuring 1.2 cm, chemical shif t artifact is present, indicating internal fat. No hydronephrosis. Vessels and lymph nodes: No pathologic adenopathy in the abdomen by size criteria. No abdominal aorti c aneurysm. Bowel and peritoneum: Unremarkable. No bowel obstruction or drainable ascites/abscess. Body wall: Unremarkable Bones: No suspicious enhancing osseous lesion. 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 A smaller lesion a lso in segment 6 with similar imaging characteristics is also seen (14/46). 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 Mild splenomegaly. No definite MRI evidence of active malignancy or lymphadenopathy by size criteria. Within the limitations of mild motion artifact, there is no definite hypervascular pancreas lesion to suggest a parenchymal neuroendocrine tumor Depending on clinical workup, follow-up imaging could be obtained for the above findings to ensure st ability. Reviewed by: Eddie Zheng MD on 01/27/2023 12:54 PM PDT Approved by: Eddie Zheng MD on 01/27/2023 12:54 PM PDT Station ID: [id number]
[2023-01-27 14:29] LABS: CALCIUM 8.5 mg/dL (8.5-10.3); CREATININE 0.9 mg/dL (0.6-1.3); POTASSIUM 3.8 mmol/L (3.5-4.5)
[2023-01-27 15:38] LABS: THYROID STIMULATING HORMONE 2.28 uIU/mL (0.34-5.60)
[2023-01-28 05:34] LABS: FERRITIN 129.7 ng/mL (23.9-336.2)
[2023-01-28 05:36] LABS: RHEUMATOID FACTOR POSITIVE (Negative)
[2023-01-28] MEDS: SODIUM CHLORIDE FLUSH 0.9% 10 ML SYRINGE IVP SCH ×2 (06:17→09:06)
[2023-01-28] MEDS: ASCORBIC ACID 500 MG TABLET PO SCH (09:06)
[2023-01-28] MEDS: NICOTINE 14 MG PATCH TOP SCH (09:06)
[2023-01-28] MEDS: MULTIVITAMIN W/MINERALS TABLET PO SCH (09:06)
[2023-01-28 09:30] LABS: CALCIUM 8.6 mg/dL (8.5-10.3); CREATININE 0.8 mg/dL (0.6-1.3); POTASSIUM 3.7 mmol/L (3.5-4.5)
[2023-01-28 11:33] VITALS: BP 126/68; O2SAT 97
--- NOTE | 2023-01-28 11:41 | Discharge Plan ---
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 Once you lost your job, you feel like you deteriorated because you had nothing to do and became depressed. The depression then led to a lack of appetite, and you just did not want to eat very much. It got to the point where you lost 30 pounds, and even the effort of getting up to eat anything was too much. This is in spite of the fact that you live with someone. All of this was diagnosed after you came to the emergency room, where you presented as shortness of breath with exertion for the last several months. You had already been seen in the walk-in clinic. The walk-in clinic found you to have severe anemia and a low sodium. Our blood work showed that you have gotten to the point where your blood sugar is very, very low because of severe malnutrition and near starvation. Plan of Treatment: There are other causes of low blood sugar besides near starvation. That includes a tumor called "insulinoma". We did do scanning of your abdomen to look for that. We did not find that. But it is something that you should keep in the back of your head when you establish yourself with your primary care provider. Nutrition services has seen you. You have had a long talk with our settlement processor to make sure that you are eating the right type of food. Your salt level is still a little on the low side. Normal salt (serum sodium) for human body is 135 mmol/L. You are 126 in the emergency room. You are 128 at discharge. You do not need to be restrictive in your salt when you go home. Another problem is low glucose. Although the CAT scan does not show a tumor of the pancreas that is an insulinoma, we have done blood test to make sure that your pancreas is not making too much insulin. But those blood test are pending at discharge. When you go see your primary care provider, make sure they look up the results for C-peptide and insulin levels. 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 Make sure that your new primary care provider repeats the scan in the next 3 to 6 months to make sure it is not growing. Let your primary care provider know that your cortisol levels were normal. In other words your adrenal gland salt levels were normal. 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 Please establish yourself with a primary care provider to see if you are a candidate for treatment to delay or stop further destruction of your hands, feet, knees, and hips, etc. You are a smoker. During the stay you needed nicotine patch to control your nicotine craving. We think you do have early emphysema. Other than stopping smoking, there is not much to do for early emphysema. I have sent you home with an inhaler to use in case you have episodes of coughing and wheezing. Please have your primary care provider order something called pulmonary function studies to measure how bad your emphysema is. I would also asked that you have a diffusion capacity (DLCO) with that pulmonary function study. This will measure how easily oxygen can or cannot get through your lungs into your bloodstream. My final request is that you stop smoking. This will lead to increased risk of lung cancer, emphysema, head and neck cancer. Care Goals: Your plan is to get all of these problems under control. You would like to go home and still live with your . With the support of your brother, and , you promised to start eating a better diet. Assessment: His brother, from [facility], is at the bedside. He states that the family is committed to helping Mr. España get back on his feet. Mr. España says that he is motivated. No Smoking: If you smoke, Please STOP! Call for help.
[2023-01-28] MEDS ORDERED: CYANOCOBALAMIN 1,000 MCG/ML VIAL IM ONE (13:02)
--- NOTE | 2023-01-28 22:12 | DISCHARGE SUMMARY ---
Discharge Summary Admit Date: 01/26/23 Discharge Date: 01/28/23 Discharging Provider: Cielo Abbasi MD Primary Care Provider: [facility] Code Status: Attempt Resuscitation Condition at Discharge: Fair Discharge Disposition: 01 Home, Self Care - DIAGNOSES Discharge Diagnoses with Status of Each Condition: 1. Hyponatremia 2. Hypoglycemia 3. Anemia 4. Protein calorie malnutrition 5. Adrenal nodule 6. Liver mass 7. Abnormal loss of weight 8. COPD without exacerbation 9. Chronic tobacco abuse 10. Rheumatoid nodule of hand - HPI History of Present Illness: This is a 57-year-old male with a negative past medical history. He has had swelling of his joints of his fingers with deformities for many years, has never had it evaluated (but it appears to be rheumatoid arthritis). He works as a construction consultant, has amended the way he holds his equipment because of these finger deformities. He uses occasional Aleve. The patient also smoked 1-1/2 to 2 packs a day, has decreased now down to two thirds of a pack, is trying to quit. The patient has felt weak and dizzy for the past 4-5 months, feels like he has a "buzz" when he gets up every morning. He reports being short of breath for the same 4 to 5 months and because of that is unable to work in construction any mo re. He reports fatigue and a weight loss of 30 pounds that was unintentional, over the past 1 year. His brother visited him from out of state and encouraged the patient to go to a walk-in clinic for evaluation where labs were drawn 2 days ago. Sodium was 125, hemoglobin 9.4, CXR showed COPD. Due to abnormal labs, today he was told to come to the ER. He denied any other complaints such as melena or hematochezia when evaluated. He does admit to drinking 8 bottles of bottled water daily. Patient does describe shortness of breath with activity over the past 4 months. He denies PND orthopnea. He denies any syncope, chest pain, palpitations, leg edema. Labs were repeated in our ER, and he has a sodium of 126, hemoglobin 9.8 and glucose 34. The glucose lab was repeated by fingerstick and came back at 99 but this was about 2 hours later. The patient underwent CT of chest and abdomen/pelvis, it was negative for PE. Important findings were that there was a mass in his liver and a nodule on the adrenal gland. ED provider spoke to me about this patient. He will be placed in Observation because of the hypoglycemia, to monitor and see if this is recurrent. We will also treat him for hyponatremia. I asked the patient about his CODE BLUE wishes and without hesitation he stated he wants to be a DNR/DNI. History - Past Medical History Cardiovascular: reports: None Respiratory: reports: Shortness of breath Neuro: reports: None Endocrine/Autoimmune: reports: Other (Hasn odules on all the joints of all his fingers, and deformities, which are consistent with RA) GI: reports: None : reports: None HEENT: reports: None Psych: reports: None Musculoskeletal: reports: None Derm: reports: None MRSA Hx?: No - CONSULTS | PROCEDURES Procedures: Chest/thorax CT angiogram does not have pulmonary embolism. He does have moderate emphysema present throughout both lungs. Right upper lobe airway mucous plugging noted without consolidation. Mild dependent atelectasis at both lung bases. No pleural effusions. Heart size normal. Splenomegaly at 12 cm. No aneurysms. Abdomen/pelvis CT with splenomegaly of 14.8 cm. Low-density nodule right adrenal gland. No cholecystitis or pericholecystic inflammation. Possible cyst left renal cortex at 9 mm. Low-density 1 cm lesion in the liver. Possible further evaluation needed with MRI. Abdomen MRI favors the liver lesion as a sclerosing hemangioma. Splenomegaly at 14 to 15 cm. Left adrenal nodule with chemical shift artifact present indicating internal fat. No cyst or tumors in the pancreas. Occult blood negative Insulin level 10.4 and normal. C-peptide level 4.1 and normal. Iron 55 and normal. TIBC normal at 309. Transfer normal at 221. Folate normal at 11.2. B12 normal at 214. TSH normal at 2.28. Morning cortisol level normal at 13.7. - HOSPITAL COURSE Hospital Course: The patient states that he has a history of rheumatoid arthritis and also worked in the construction business he has quite a bit of joint pain and joint deformity. He feels like he stopped eating because once he lost his job due to disability, he became depressed. Did not want to eat. That led him to be weak and fatigued. And just the effort of cooking or making food for himself was overwhelming. He is and has a . He is lost 30 pounds. He had been seen in the walk-in clinic because he was short of breath with exertion. The walk-in clinic found him to have severe anemia and low sodium and that is why he was referred to the ER. He was found to be hypoglycemic in the 50s. We did a work-up for insulinoma. CT and MRI are as above. We did a work-up for hyponatremia. Hydration resulted in a gradually increasing sodium to 128. He has emphysema changes on CT scan and chest x-ray and should be evaluated with PFTs and strongly encouraged to stop smoking. His glucose, sodium were acceptable enough for him to be discharged. Oral p.o. intake also improved with just simple normal diet. He met extensively with nutr ition services. He is now stable for discharge. At discharge he was 5 foot 9 inches tall, 70 kg. Temperature 36.7. Heart rate 98. Blood pressure 126/68. Respirations 18. 97% on room air. He is a thin almost cachectic slender white male disheveled appearance. But oriented to person place and situation. Brother was at the bedside at discharge and brother said that family was committed to getting him on the "right course" with regards to eating. Shotty neck adenopathy. But supple. Prolonged and exhalation on breathing but no wheezing. No rhonchi. No respiratory distress. Irregular rate and rhythm. And abdomen that soft, nontender, scaphoid. Extremities are slender with loss of muscle mass and no edema. Able to ambulate in the room without any deficits. I told him that we could attribute his weight loss to depression that he is describing. But he really needs to see his primary care provider (which she does not have 1) to make sure that his loss of weight is not due to malignancy that we have not found. Greater than 30 minutes was spent coronary discharge This document was made in part using voice recognition software. While efforts are made to proofread this document, sound alike and grammatical errors may occur. - ALLERGIES Allergies/Adverse Reactions: Allergies Allergy/AdvReac Type Severity Reaction Status Date / Time No Known Drug Allergies Allergy Verified 01/26/23 09:01 - MEDICATIONS Home Medications: Ambulatory Orders Medication Instructions Recorded Confirmed Naproxen Sodium [Aleve] 220 mg PO BID PRN 01/27/23 01/27/23 Ascorbic Acid [Vitamin C] 500 mg PO DAILY tab 01/28/23 Blood Sugar Diagnostic [Glucometer 1 each MC DAILY #1 kit 01/28/23 Strips] Blood-Glucose Meter [Glucometer] 1 each MC DAILY #1 each 01/28/23 Ipratropium/Albuterol [Combivent 4 gm IH TID PRN #1 gm 01/28/23 Respimat] Multivitamin W/Minerals [Theragran 1 tab PO DAILYWM tab 01/28/23 M] - LABS Result Diagrams: 01/27/23 04:45 01/28/23 09:02
[2023-01-29 06:11] LABS: C-PEPTIDE SERUM 4.1 ng/mL (1.1-4.4); INSULIN 10.4 uIU/mL (2.6-24.9)
== END 2023-01-28 13:47 | disposition home or self-care (01) ==
LOC: ED 08:52 → MS2 15:01
PROVIDERS: ADMIT Internal Medicine; ATTEND Internal Medicine
DX: E87.1 Hypo-osmolality and hyponatremia (principal); F17.200 Nicotine dependence, unspecified, uncomplicated; D64.9 Anemia, unspecified; E16.2 Hypoglycemia, unspecified; E27.8 Other specified disorders of adrenal gland; K76.89 Other specified diseases of liver; M06.342 Rheumatoid nodule, left hand; M06.341 Rheumatoid nodule, right hand; E46 Unspecified protein-calorie malnutrition; J43.9 Emphysema, unspecified; Z68.23 Body mass index [BMI] 23.0-23.9, adult; Z66 Do not resuscitate
CPT/HCPCS: 36415; 71275; 74177; 74183; 80048; 80053; 82272; 82533; 82607; 82728; 82746; 83036; 83525; 83540; 83735; 84295; 84300; 84443; 84466; 84681; 85025; 85027; 86430; 93005; 96360; 96361; 96372; 99285; A9270; A9585; G0378; Q9967